=== PATIENT | female | born 1995 | race Hispanic/Latino ===

== ENCOUNTER 2021-09-20 18:45 | Emergency (ER) | payer MEDICAID, OTHER ==
[~2021-09-20] VITALS: Ht 154.9 cm; Wt 81.6 kg
[~2021-09-20 18:45] MED LIST: PNV1TABL77 PO
[2021-09-20 19:32] LABS: BASOPHILS % (AUTO) 0.1 % (0.0-5.0); EOSINOPHILS % (AUTO) 0.6 % (0.0-8.0); HEMATOCRIT 34.6 % (36-48); MEAN CORPUSCULAR HEMOGLOBIN 18.8 pg (27.0-33.0); MEAN CORPUSCULAR HGB CONC 29.8 g/dL (32.0-36.0); MONOCYTES % (AUTO) 4.3 % (3.0-13.0); NEUTROPHILS % (AUTO) 83.5 % (40.0-77.0); PLATELET COUNT (AUTO) 564 K/uL (130-400); RED BLOOD CELL COUNT(AUTO) 5.49 MIL/uL (4.00-5.50); RED CELL DISTRIBUTION WIDTH 17.2 % (11.0-15.5); WHITE BLOOD COUNT (AUTO) 15.5 K/uL (4.8-10.8)
[2021-09-20 19:38] LABS: APPEARANCE,URINE Cloudy (CLEAR); BILIRUBIN,URINE Negative (NEGATIVE); COLOR,URINE Yellow (YELLOW); GLUCOSE, URINE (UA) Negative (NEGATIVE); KETONES,URINE Trace mg/dL (NEGATIVE); LEUKOCYTE ESTERASE ,URINE Moderate (NEGATIVE); NITRATE,URINE Negative (NEGATIVE); OCCULT BLOOD,URINE Negative (NEGATIVE); PROTEIN,URINE Trace mg/dL (NEGATIVE)
[2021-09-20 19:43] LABS: CREATININE 0.8 mg/dL (0.5-1.5); POTASSIUM 3.9 mmol/L (3.5-5.1)
[2021-09-20 19:43] LABS: HCG,QUAL RESULT NEGATIVE (NEGATIVE)
[2021-09-20 19:46] LABS: RBC,URINE 0-1 /HPF (0-1)
[2021-09-20 19:47] LABS: BACTERIA,URINE Few /HPF (None Seen); SQUAMOUS EPITHELIAL CELL,UR Moderate /HPF (0-2)
[2021-09-20 19:48] LABS: ALBUMIN 3.8 g/dL (3.5-5.0); BILIRUBIN,TOTAL 0.6 mg/dL (0.2-1.0); TOTAL PROTEIN, SERUM 7.6 g/dL (6.0-8.3)
[2021-09-20 19:48] LABS: MUCUS,URINE Few LPF (None Seen)
[2021-09-20] MEDS ORDERED: MORPHINE 2 MG SYG IVP ONE (20:30)
[2021-09-20] MEDS ORDERED: KETOROLAC 15MG/ML VIAL (15MG/ML) IV ONE (20:30)
[2021-09-20] MEDS ORDERED: ONDANSETRON 4MG INJ IVP ONE (20:30)
[2021-09-20] MEDS ORDERED: 0.9%NACL 1000ML 1,000 ML IV ONE (20:30)
[2021-09-20] MEDS ORDERED: ONDA4TAB10 PO (22:06)
[2021-09-20] MEDS ORDERED: ACET-2079 PO (22:06)
[2021-09-20 22:11] VITALS: BP 113/70
== END 2021-09-20 22:31 | disposition home or self-care (01) ==
LOC: EDH 18:45
DX: K80.20 Calculus of gallbladder without cholecystitis without obstruction (principal)
CPT/HCPCS: 36415; 76705; 80053; 81001; 81025; 83690; 85025; 87088; 96361; 96374; 96375; 99284; J1885; J2405; J7030 ×2

== ENCOUNTER 2021-11-17 14:54 | Inpatient (IN) | payer OTHER ==
[~2021-11-17] VITALS: Ht 152.4 cm; Wt 78.5 kg
[~2021-11-17 14:54] MED LIST changes: +ACET-2079 PO; +ONDA4TAB10 PO
[2021-11-17 15:32] LABS: BASOPHILS % (AUTO) 0.1 % (0.0-5.0); EOSINOPHILS % (AUTO) 0.5 % (0.0-8.0); LYMPHOCYTES % (AUTO) 18.2 % (21.0-51.0); MEAN CORPUSCULAR HEMOGLOBIN 18.9 pg (27.0-33.0); MEAN CORPUSCULAR HGB CONC 29.7 g/dL (32.0-36.0); MEAN CORPUSCULAR VOLUME 63.6 fL (79-99); MONOCYTES % (AUTO) 6.2 % (3.0-13.0); NEUTROPHILS % (AUTO) 74.5 % (40.0-77.0); PLATELET COUNT (AUTO) 492 K/uL (130-400); RED CELL DISTRIBUTION WIDTH 18.6 % (11.0-15.5); WHITE BLOOD COUNT (AUTO) 10.9 K/uL (4.8-10.8)
[2021-11-17 16:07] LABS: BILIRUBIN,TOTAL 0.5 mg/dL (0.2-1.0); CREATININE 0.8 mg/dL (0.5-1.5); TOTAL PROTEIN, SERUM 7.6 g/dL (6.0-8.3)
[2021-11-17 16:12] LABS: APPEARANCE,URINE CLOUDY (CLEAR); BILIRUBIN,URINE NEGATIVE (NEGATIVE); COLOR,URINE YELLOW (YELLOW); GLUCOSE, URINE (UA) NEGATIVE (NEGATIVE); KETONES,URINE 5 mg/dL (NEGATIVE); LEUKOCYTE ESTERASE ,URINE LARGE (NEGATIVE); NITRATE,URINE NEGATIVE (NEGATIVE); OCCULT BLOOD,URINE SMALL (NEGATIVE); PROTEIN,URINE NEGATIVE (NEGATIVE); UROBILINOGEN,URINE 0.2 mg/dL (0.2-1.0)
[2021-11-17 16:17] LABS: HCG,QUAL RESULT NEGATIVE (NEGATIVE)
[2021-11-17 16:20] LABS: WBC,URINE 26-50 /HPF (0-1)
[2021-11-17 16:21] LABS: BACTERIA,URINE Few /HPF (None Seen)
[2021-11-17 16:22] LABS: SQUAMOUS EPITHELIAL CELL,UR Few /HPF (0-2)
[2021-11-17] MEDS ORDERED: IOHEXOL 350 MG/ML 100ML INFUS..BTL IV ONE (16:57)
[2021-11-17] MEDS ORDERED: ONDANSETRON 4MG INJ IVP ONE (17:00)
[2021-11-17] MEDS ORDERED: MORPHINE 2 MG SYG IVP ONE ×2 (17:00→17:30)
[2021-11-17] MEDS ORDERED: 0.9%NACL 1000ML 1,000 ML IV ONE (17:00)
[2021-11-17] MEDS ORDERED: DiphenhydrAMINE HCL 50 MG/ML VIAL ONE (17:55)
[2021-11-17] MEDS ORDERED: KETOROLAC 30MG VIAL (30MG/ML) ONE (17:55)
[2021-11-17] MEDS ORDERED: KETOROLAC 30MG VIAL (30MG/ML) IVP ONE (18:00)
[2021-11-17] MEDS ORDERED: DiphenhydrAMINE HCL 50 MG/ML VIAL IV ONE (18:00)
[2021-11-17] MEDS: 0.9%NACL 1000ML 1,000 ML IV SCH (18:04)
[2021-11-17] MEDS: FAMOTIDINE 20MG VIAL IV SCH (19:59)
[2021-11-17] MEDS: HYDROMORPHONE 0.5 MG SYG (0.5MG/0.5ML) IV PRN (20:00)
[2021-11-17] MEDS: ONDANSETRON 4MG INJ IV PRN (20:00)
[2021-11-17] MEDS: ZOSYN 3.375GM+NS 50ML 50 ML IV SCH (21:00)
[2021-11-17 23:30] VITALS: BP 119/66
[2021-11-18] MEDS: ONDANSETRON 4MG INJ IV PRN (01:47)
[2021-11-18] MEDS: 0.9%NACL 1000ML 1,000 ML IV SCH ×3 (02:05→17:04)
[2021-11-18 04:00] VITALS: BP 124/69
[2021-11-18] MEDS ORDERED: PROMETHAZINE HCL 25 MG/ML 1ML AMPULE IM ONE (04:30)
[2021-11-18] MEDS: ZOSYN 3.375GM+NS 50ML 50 ML IV SCH ×3 (04:43→20:42)
[2021-11-18] MEDS: HYDROMORPHONE 0.5 MG SYG (0.5MG/0.5ML) IV PRN (04:44)
[2021-11-18 06:06] LABS: BASOPHILS % (AUTO) 0.1 % (0.0-5.0); HEMATOCRIT 30.8 % (36-48); MEAN CORPUSCULAR HEMOGLOBIN 18.7 pg (27.0-33.0); MEAN CORPUSCULAR HGB CONC 29.9 g/dL (32.0-36.0); MEAN CORPUSCULAR VOLUME 62.5 fL (79-99); NEUTROPHILS % (AUTO) 87.3 % (40.0-77.0); PLATELET COUNT (AUTO) 426 K/uL (130-400); RED BLOOD CELL COUNT(AUTO) 4.93 MIL/uL (4.00-5.50); RED CELL DISTRIBUTION WIDTH 18.8 % (11.0-15.5); WHITE BLOOD COUNT (AUTO) 12.8 K/uL (4.8-10.8)
[2021-11-18 06:28] LABS: CREATININE 0.6 mg/dL (0.5-1.5); MAGNESIUM 1.9 mg/dL (1.80-2.40); PHOSPHORUS 3.6 mg/dL (2.5-4.9); POTASSIUM 3.7 mmol/L (3.5-5.1)
[2021-11-18 06:39] LABS: INR 0.96 (0.85-1.15); PROTHROMBIN TIME 10.5 SEC (9.6-11.6)
[2021-11-18 06:40] LABS: PARTIAL THROMBOPLASTIN TIME 25.3 SEC (26.3-35.5)
[2021-11-18 08:00] VITALS: BP 125/68
[2021-11-18] MEDS: FAMOTIDINE 20MG VIAL IV SCH ×2 (09:08→20:42)
[2021-11-18] MEDS: ENOXAPARIN SODIUM 40 MG/0.4 ML SYRINGE SQ SCH (09:09)
[2021-11-18] MEDS: MORPHINE 2 MG SYG IV PRN (09:29)
[2021-11-18 09:31] LABS: AMPHET/METH SCREEN,URINE NEGATIVE (NEGATIVE); BARBITURATE SCREEN, URINE NEGATIVE (NEGATIVE); BENZODIAZEPINES SCREEN,URINE NEGATIVE (NEGATIVE); CANNABINOID SCREEN,URINE NEGATIVE (NEGATIVE); COCAINE SCREEN,URINE NEGATIVE (NEGATIVE); OPIATE SCREEN,URINE NEGATIVE (NEGATIVE); PHENCYCLIDINE SCREEN,URINE NEGATIVE (NEGATIVE)
[2021-11-18 11:00] VITALS: BP 127/70
[2021-11-18 16:00] VITALS: BP 107/62
[2021-11-18 20:00] VITALS: BP 109/62
[2021-11-19] VITALS: BP 102/59
[2021-11-19] MEDS: 0.9%NACL 1000ML 1,000 ML IV SCH ×2 (03:10→10:00)
[2021-11-19 04:00] VITALS: BP 98/61
[2021-11-19] MEDS: ZOSYN 3.375GM+NS 50ML 50 ML IV SCH ×3 (04:01→21:09)
[2021-11-19 05:05] LABS: HEMATOCRIT 29.8 % (36-48); MEAN CORPUSCULAR HEMOGLOBIN 18.7 pg (27.0-33.0); MEAN CORPUSCULAR HGB CONC 29.5 g/dL (32.0-36.0); MEAN CORPUSCULAR VOLUME 63.3 fL (79-99); RED BLOOD CELL COUNT(AUTO) 4.71 MIL/uL (4.00-5.50); RED CELL DISTRIBUTION WIDTH 18.9 % (11.0-15.5); WHITE BLOOD COUNT (AUTO) 11.5 K/uL (4.8-10.8)
[2021-11-19 05:27] LABS: CREATININE 0.7 mg/dL (0.5-1.5); POTASSIUM 3.2 mmol/L (3.5-5.1)
[2021-11-19 08:00] VITALS: BP 115/74
[2021-11-19] MEDS: FAMOTIDINE 20MG VIAL IV SCH ×2 (09:22→21:09)
[2021-11-19] MEDS: ENOXAPARIN SODIUM 40 MG/0.4 ML SYRINGE SQ SCH (09:23)
[2021-11-19] MEDS: MORPHINE 2 MG SYG IV PRN (09:26)
[2021-11-19 10:55] VITALS: BP 114/67
[2021-11-19 16:00] VITALS: BP 116/70
[2021-11-19] MEDS: POTASSIUM CHLORIDE 20MEQ/100ML 100 ML IV PRN (17:26)
[2021-11-19 20:00] VITALS: BP 107/57
[2021-11-20] VITALS (7 sets, daily range): BP systolic 107–125; BP diastolic 59–82
[2021-11-20] MEDS: 0.9%NACL 1000ML 1,000 ML IV SCH ×3 (03:55→17:25)
[2021-11-20 05:11] LABS: HEMATOCRIT 27.5 % (36-48); MEAN CORPUSCULAR HEMOGLOBIN 18.9 pg (27.0-33.0); MEAN CORPUSCULAR HGB CONC 30.2 g/dL (32.0-36.0); MEAN CORPUSCULAR VOLUME 62.8 fL (79-99); NUCLEATED RED BLOOD CELLS 0.2 % (0.0-0.19); RED BLOOD CELL COUNT(AUTO) 4.38 MIL/uL (4.00-5.50); RED CELL DISTRIBUTION WIDTH 19.3 % (11.0-15.5); WHITE BLOOD COUNT (AUTO) 13.7 K/uL (4.8-10.8)
[2021-11-20] MEDS: ZOSYN 3.375GM+NS 50ML 50 ML IV SCH ×3 (05:16→20:39)
[2021-11-20 05:30] LABS: CREATININE 0.6 mg/dL (0.5-1.5); POTASSIUM 3.3 mmol/L (3.5-5.1)
[2021-11-20 05:44] LABS: % IRON SATURATION 3.7 % (22-44)
[2021-11-20] MEDS: POTASSIUM CHLORIDE 20MEQ/100ML 100 ML IV PRN ×2 (05:58→17:25)
[2021-11-20] MEDS: LIDOCAINE HCL-MPF 1% 2ML VIAL IV PRN ×2 (05:58→17:25)
[2021-11-20] MEDS: FAMOTIDINE 20MG VIAL IV SCH ×2 (10:18→20:39)
[2021-11-20] MEDS: ENOXAPARIN SODIUM 40 MG/0.4 ML SYRINGE SQ SCH (10:18)
[2021-11-21] MEDS: 0.9%NACL 1000ML 1,000 ML IV SCH ×4 (02:00→22:51)
[2021-11-21 04:13] VITALS: BP 102/59
[2021-11-21 04:48] LABS: HEMATOCRIT 29.8 % (36-48); MEAN CORPUSCULAR HGB CONC 30.5 g/dL (32.0-36.0); MEAN CORPUSCULAR VOLUME 62.3 fL (79-99); RED BLOOD CELL COUNT(AUTO) 4.78 MIL/uL (4.00-5.50); RED CELL DISTRIBUTION WIDTH 19.8 % (11.0-15.5); WHITE BLOOD COUNT (AUTO) 11.6 K/uL (4.8-10.8)
[2021-11-21 05:14] LABS: CREATININE 0.7 mg/dL (0.5-1.5); POTASSIUM 3.7 mmol/L (3.5-5.1)
[2021-11-21] MEDS: ZOSYN 3.375GM+NS 50ML 50 ML IV SCH ×3 (05:18→21:20)
[2021-11-21] MEDS: ENOXAPARIN SODIUM 40 MG/0.4 ML SYRINGE SQ SCH (08:45)
[2021-11-21] MEDS: FAMOTIDINE 20MG VIAL IV SCH ×2 (08:45→21:20)
[2021-11-21 08:52] VITALS: BP 113/66
[2021-11-21 11:29] VITALS: BP 107/73
[2021-11-21 16:06] VITALS: BP 101/62
[2021-11-21 20:00] VITALS: BP 115/66
[2021-11-22] VITALS: BP 107/64
[2021-11-22 04:00] VITALS: BP 105/62
[2021-11-22 04:53] LABS: BASOPHILS % (AUTO) 0.2 % (0.0-5.0); EOSINOPHILS % (AUTO) 3.3 % (0.0-8.0); HEMATOCRIT 27.5 % (36-48); LYMPHOCYTES % (AUTO) 28.3 % (21.0-51.0); MEAN CORPUSCULAR HGB CONC 30.5 g/dL (32.0-36.0); MEAN CORPUSCULAR VOLUME 62.1 fL (79-99); MONOCYTES % (AUTO) 8.2 % (3.0-13.0); NEUTROPHILS % (AUTO) 59.4 % (40.0-77.0); PLATELET COUNT (AUTO) 393 K/uL (130-400); RED BLOOD CELL COUNT(AUTO) 4.43 MIL/uL (4.00-5.50); RED CELL DISTRIBUTION WIDTH 19.6 % (11.0-15.5)
[2021-11-22] MEDS: ZOSYN 3.375GM+NS 50ML 50 ML IV SCH ×3 (04:57→21:00)
[2021-11-22 05:04] LABS: ALBUMIN 2.5 g/dL (3.5-5.0); CREATININE 0.7 mg/dL (0.5-1.5); MAGNESIUM 1.5 mg/dL (1.80-2.40); POTASSIUM 3.2 mmol/L (3.5-5.1)
[2021-11-22] MEDS: POTASSIUM CHLORIDE 20MEQ/100ML 100 ML IV PRN (06:04)
[2021-11-22] MEDS: LIDOCAINE HCL-MPF 1% 2ML VIAL IV PRN (06:05)
[2021-11-22 07:30] VITALS: BP 126/60
[2021-11-22] MEDS: ENOXAPARIN SODIUM 40 MG/0.4 ML SYRINGE SQ SCH (09:00)
[2021-11-22] MEDS: FAMOTIDINE 20MG VIAL IV SCH ×2 (09:00→21:00)
[2021-11-22] MEDS: 0.9%NACL 1000ML 1,000 ML IV SCH ×2 (10:00→18:00)
[2021-11-22 11:00] VITALS: BP 95/59
[2021-11-22] MEDS ORDERED: LACTATED RINGERS 1000ML 1,000 ML IV ONE (13:15)
[2021-11-22 16:00] VITALS: BP 105/61
[2021-11-22] MEDS ORDERED: MAGNESIUM 2GM PREMIX 50ML 50 ML IV PRN (17:00)
[2021-11-22] MEDS ORDERED: BUPIVACAINE/PF 0.5% 30ML VIAL ONE (17:59)
[2021-11-22 20:00] VITALS: BP 96/52
[2021-11-23] VITALS (27 sets, daily range): BP systolic 104–134; BP diastolic 58–76
[2021-11-23] MEDS: 0.9%NACL 1000ML 1,000 ML IV SCH ×3 (04:15→17:44)
[2021-11-23] MEDS: ZOSYN 3.375GM+NS 50ML 50 ML IV SCH ×3 (04:15→20:49)
[2021-11-23 06:11] LABS: MEAN CORPUSCULAR VOLUME 63.2 fL (79-99); RED BLOOD CELL COUNT(AUTO) 4.43 MIL/uL (4.00-5.50); RED CELL DISTRIBUTION WIDTH 19.9 % (11.0-15.5); WHITE BLOOD COUNT (AUTO) 7.3 K/uL (4.8-10.8)
[2021-11-23 06:22] LABS: CREATININE 0.6 mg/dL (0.5-1.5); POTASSIUM 3.5 mmol/L (3.5-5.1)
[2021-11-23] MEDS: FAMOTIDINE 20MG VIAL IV SCH ×2 (08:25→20:49)
[2021-11-23] MEDS: ENOXAPARIN SODIUM 40 MG/0.4 ML SYRINGE SQ SCH (08:28)
[2021-11-23] MEDS ORDERED: MIDAZOLAM HCL 1 MG/ML 2ML VIAL ONE (16:48)
[2021-11-23] MEDS ORDERED: PROPOFOL 10 MG/ML 20ML VIAL IV ONE (16:49)
[2021-11-23] MEDS ORDERED: FENTANYL CITRATE PF 50 MCG/1 ML 5ML AMP IV ONE (16:50)
[2021-11-23] MEDS ORDERED: ROCURONIUM 10MG/1ML SYR 10 MG/ML ML ONE (16:50)
[2021-11-23] MEDS ORDERED: ONDANSETRON 4MG INJ ONE (17:01)
[2021-11-23] MEDS ORDERED: BUPIVACAINE/PF 0.5% 30ML VIAL ONE (17:02)
[2021-11-23] MEDS ORDERED: MEPERIDINE-PF 25 MG/ML SYG ONE ×2 (17:42→18:55)
[2021-11-23] MEDS ORDERED: NEOSTIGMINE 5MG/5ML SYR IV ONE (18:31)
[2021-11-23] MEDS ORDERED: GLYCOPYRROLATE 1 MG/5 ML SYRINGE ONE (18:31)
[2021-11-23] MEDS ORDERED: KETOROLAC 30MG VIAL (30MG/ML) ONE (18:36)
[2021-11-23] MEDS ORDERED: FENTANYL CITRATE PF 50 MCG/1 ML 2ML VIAL ONE ×2 (18:37→19:08)
[2021-11-23] MEDS: ONDANSETRON 4MG INJ IV PRN (19:11)
[2021-11-24 00:45] VITALS: BP 109/67
[2021-11-24 01:45] VITALS: BP 110/61
[2021-11-24] MEDS: 0.9%NACL 1000ML 1,000 ML IV SCH (02:31)
[2021-11-24 04:00] VITALS: BP 113/67
[2021-11-24] MEDS: ZOSYN 3.375GM+NS 50ML 50 ML IV SCH (04:23)
[2021-11-24 05:18] LABS: HEMATOCRIT 31.1 % (36-48); MEAN CORPUSCULAR HEMOGLOBIN 18.9 pg (27.0-33.0); MEAN CORPUSCULAR HGB CONC 29.9 g/dL (32.0-36.0); MEAN CORPUSCULAR VOLUME 63.3 fL (79-99); RED BLOOD CELL COUNT(AUTO) 4.91 MIL/uL (4.00-5.50); WHITE BLOOD COUNT (AUTO) 10.2 K/uL (4.8-10.8)
[2021-11-24 05:33] LABS: ALBUMIN 2.8 g/dL (3.5-5.0); BILIRUBIN,DIRECT 0.3 mg/dL (0.0-0.3); BILIRUBIN,TOTAL 0.5 mg/dL (0.2-1.0); CREATININE 0.6 mg/dL (0.5-1.5); TOTAL PROTEIN, SERUM 6.6 g/dL (6.0-8.3)
[2021-11-24] MEDS: FAMOTIDINE 20MG VIAL IV SCH (07:49)
[2021-11-24] MEDS: ENOXAPARIN SODIUM 40 MG/0.4 ML SYRINGE SQ SCH (07:49)
[2021-11-24 08:02] VITALS: BP 113/67
== END 2021-11-24 10:20 | disposition home or self-care (01) | DRG 418 ==
LOC: EDH 14:54 → EDHIP 14:55 → 3CH 23:47
PROVIDERS: ADMIT Hospitalist; ATTEND Hospitalist
PROC: 0FT44ZZ Resection of Gallbladder, Percutaneous Endoscopic Approach (ICD-10-PCS; principal; 2021-11-23 17:19)
DX: K85.10 Biliary acute pancreatitis without necrosis or infection (principal); K80.00 Calculus of gallbladder with acute cholecystitis without obstruction; N39.0 Urinary tract infection, site not specified; D50.9 Iron deficiency anemia, unspecified; K66.0 Peritoneal adhesions (postprocedural) (postinfection); Z20.822 Contact with and (suspected) exposure to COVID-19; Z83.3 Family history of diabetes mellitus; Z82.5 Family history of asthma and other chronic lower respiratory diseases; Z82.49 Family history of ischemic heart disease and other diseases of the circulatory system; Z82.0 Family history of epilepsy and other diseases of the nervous system; Z82.3 Family history of stroke
CPT/HCPCS: 36415; 74177; 74181; 76705; 78226; 80048; 80053; 80076; 80305; 81001; 81025; 82040; 82728; 83540; 83550; 83690; 83735; 84100; 84478; 85025; 85027; 85610; 85730; 87040; 87088; 87635; 93005; A9537; C9803; G0378; J1170; J1200; J1650; J1885; J2175; J2250; J2405; J2543; J2550; J2704; J2710; J3010; J3475; J3480; J3490; J7030; J7120; Q9967

== ENCOUNTER 2023-04-02 20:55 | Emergency (ER) | payer OTHER ==
[~2023-04-02] VITALS: Ht 152.4 cm; Wt 94.3 kg
[2023-04-02 22:49] VITALS: BP 144/75; PULSE 118; RESP 17; O2SAT 100
[2023-04-02] MEDS ORDERED: ACETAMINOPHEN 500 MG TABLET ONE (23:29)
[2023-04-02 23:40] LABS: BASOPHILS # (AUTO) 0.01 K/uL (0.00-0.20); BASOPHILS % (AUTO) 0.1 % (0.0-5.0); HEMATOCRIT 37.9 % (36-48); IMMATURE GRANULOCYTE ABSOLUTE 0.06 K/uL (0-1); LYMPHOCYTES # (AUTO) 0.9 K/uL (1.0-4.8); MEAN CORPUSCULAR HEMOGLOBIN 22.1 pg (27.0-33.0); MEAN CORPUSCULAR HGB CONC 31.9 g/dL (32.0-36.0); MEAN CORPUSCULAR VOLUME 69.2 fL (79-99); MONOCYTES # (AUTO) 0.7 K/uL (0.1-1.0); MONOCYTES % (AUTO) 5.6 % (3.0-13.0); NEUTROPHILS # (AUTO) 11.1 K/uL (1.8-7.7); NEUTROPHILS % (AUTO) 86.8 % (40.0-77.0); PLATELET COUNT (AUTO) 371 K/uL (130-400); RED BLOOD CELL COUNT(AUTO) 5.48 MIL/uL (4.00-5.50); RED CELL DISTRIBUTION WIDTH 15.1 % (11.0-15.5); WHITE BLOOD COUNT (AUTO) 12.8 K/uL (4.8-10.8)
[2023-04-02 23:42] LABS: RAPID GROUP A STREP negative (NEGATIVE)
[2023-04-02 23:51] LABS: INFLUENZA TYPE A Negative For Type A (NEGATIVE); INFLUENZA TYPE B Negative For Type B (NEGATIVE)
[2023-04-02 23:51] LABS: CREATININE 0.9 mg/dL (0.5-1.5); POTASSIUM 4.3 mmol/L (3.5-5.1)
[2023-04-03 00:02] LABS: SARS-CoV-2, RNA, NAAT POSITIVE SARS CoV-2 (NEGATIVE)
[2023-04-03 00:48] LABS: HCG,QUALITATIVE URINE NEGATIVE (NEGATIVE)
[2023-04-03 00:55] LABS: APPEARANCE,URINE CLOUDY (CLEAR); BILIRUBIN,URINE NEGATIVE (NEGATIVE); COLOR,URINE YELLOW (YELLOW); GLUCOSE, URINE (UA) NEGATIVE (NEGATIVE); KETONES,URINE 5 mg/dL (NEGATIVE); LEUKOCYTE ESTERASE ,URINE 500 Leu/uL (NEGATIVE); NITRATE,URINE NEGATIVE (NEGATIVE); OCCULT BLOOD,URINE NEGATIVE (NEGATIVE); PROTEIN,URINE 30 mg/dL (NEGATIVE); UROBILINOGEN,URINE 0.2 mg/dL (0.2-1.0)
[2023-04-03 00:56] LABS: ADD UA MICROSCOPIC YES
[2023-04-03 00:57] LABS: MUCUS,URINE MOD LPF (None Seen); SQUAMOUS EPITHELIAL CELL,UR MANY /HPF (0-2); WBC,URINE 51-100 /HPF (0-1)
[2023-04-03] MEDS ORDERED: KETOROLAC 30MG VIAL (30MG/ML) IVP ONE (01:30)
[2023-04-03] MEDS ORDERED: 0.9%NACL 1000ML 1,000 ML IV ONE (01:30)
[2023-04-03] MEDS ORDERED: DEXAMETHASONE SOD PHOSPHATE 4 MG/ML 1ML VIAL IV ONE (01:30)
[2023-04-03] MEDS ORDERED: CEFTRIAXONE 2GM VIAL IVPB ONE (01:30)
[2023-04-03] MEDS ORDERED: FAMOTIDINE 20MG VIAL IV ONE (01:30)
[2023-04-03] MEDS ORDERED: METOCLOPRAMIDE 10 MG/2 ML VIAL IVP ONE (01:30)
[2023-04-03] MEDS ORDERED: CEPH500B PO (02:26)
== END 2023-04-03 02:41 | disposition home or self-care (01) ==
LOC: EDH 20:55
DX: U07.1 COVID-19 (principal); N39.0 Urinary tract infection, site not specified; Z90.49 Acquired absence of other specified parts of digestive tract; Z79.899 Other long term (current) drug therapy
CPT/HCPCS: 99285; 96365; 96375; 87635; 80048; 83690; 85025; 87088; 87880; 87804 ×2; 81001; 81025; 36415; 76705; 71045; C9803; J1100; J3490; J7030; J0696; J1885; J2765